=== PATIENT | male | born 1965 | race Caucasian/White ===

== ENCOUNTER 2016-03-30 14:14 | Emergency (ER) | payer BC ==
[2016-03-30 14:30] VITALS: RESP 16; TEMP 98.6
[2016-03-30] MEDS ORDERED: NS 500 ML IV ONE (15:09)
--- NOTE | 2016-03-30 15:13 | EDPHY ---
H & P Stated Complaint: Sore legs, and difficulty breathing Time Seen by Provider: 03/30/16 14:55 HPI/ROS: CHIEF COMPLAINT: Leg pain and shortness of breath HISTORY OF PRESENT ILLNESS: Patient is a 51-year-old man with a history of multiple sclerosis who flew here 2 days ago from [place]. He states that since that time he has had soreness and easy fatigability in his legs as well as mild dyspnea with exertion. He states that his legs feel worse when he is sitting then when he is walking. No history of claudication. He does have a single stent in his heart but no other known vascular disease. He does not smoke. He has not had a cough or fever. He describes his shortness of breath as being very slight. He thinks he may have just over done it 2 days ago with all the traveling. He states that this has happened to him before but usually soreness improves after a day or 2. The pain in his leg is both thighs and calves. He also has some paresthesias in his left thigh but states this is baseline for him with his MS. REVIEW OF SYSTEMS: Constitutional: denies: chills, fever, recent illness, recent injury EENTM: denies: blurred vision, double vision, nose congestion Respiratory: See HPI Cardiac: denies: chest pain, irregular heart rate, lightheadedness, palpitations Gastrointestinal/Abdominal: denies: abdominal pain, diarrhea, nausea, vomiting, blood streaked stools Genitourinary: denies: dysuria, frequency, hematuria, pain Musculoskeletal: See HPI Skin: denies: lesions, rash, jaundice, bruising Neurological: denies: headache, numbness, paresthesia, tingling, dizziness, weakness Hematologic/Lymphatic: denies: blood clots, easy bleeding, easy bruising Immunologic/allergic: denies: HIV/AIDS, transplant EXAM: GENERAL: Well-appearing, well-nourished and in no acute distress. HEAD: Atraumatic, normocephalic. EYES: Pupils equal round and reactive to light, extraocular movements intact, sclera anicteric, conjunctiva are normal. ENT: TMs normal, nares patent, oropharynx clear without exudates. Moist mucous membranes. NECK: Normal range of motion, supple without lymphadenopathy or JVD. LUNGS: Breath sounds clear to auscultation bilaterally and equal. No wheezes rales or rhonchi. HEART: Regular rate and rhythm without murmurs, rubs or gallops. ABDOMEN: Soft, nontender, normoactive bowel sounds. No guarding, no rebound. No masses appreciated. BACK: No CVA tenderness, no spinal tenderness, step-offs or deformities EXTREMITIES: Normal range of motion, no pitting or edema. No clubbing or cyanosis. NEUROLOGICAL: Cranial nerves II through XII grossly intact. Normal speech, normal gait. 5/5 strength, normal movement in all extremities, normal sensation PSYCH: Normal mood, normal affect. SKIN: Warm, dry, normal turgor, no visible rashes or lesions. Source: Patient Exam Limitations: No limitations - Personal History Current Tetanus/Diphtheria Vaccine: Yes - Medical/Surgical History Hx Asthma: No Hx Chronic Respiratory Disease: No Hx Diabetes: No Hx Cardiac Disease: No Hx Renal Disease: No Hx Cirrhosis: No Hx Alcoholism: No Hx HIV/AIDS: No Hx Splenectomy or Spleen Trauma: No Other PMH: MS, Cardiac stent - Family History Significant Family History: No pertinent family hx - Social History Smoking Status: Never smoked Alcohol Use: Sober Drug Use: None Constitutional: Initial Vital Signs Temperature (C) 37 C 03/30/16 14:14 Heart Rate 84 03/30/16 14:14 Respiratory Rate 16 03/30/16 14:14 Blood Pressure 157/96 H 03/30/16 14:14 O2 Sat (%) 97 03/30/16 14:14 O2 Delivery Mode Room Air Allergies/Adverse Reactions: dexamethasone [From Decadron] Allergy (Verified 03/30/16 14:30) dexamethasone sod phosphate [From Decadron] Allergy (Verified 03/30/16 14:30) Home Medications: Medication Instructions Recorded ASPIRIN 03/30/16 Atarax 03/30/16 B-12 03/30/16 CALCIUM 03/30/16 Cefdinir 03/30/16 Flomax 0.4 MG (*) 03/30/16 Nexium 03/30/16 Omnaris 03/30/16 Pearls Probiotic 03/30/16 Rebif 22 Mcg/0.5 ml Syringe 03/30/16 Toprol Xl 100 mg (*) 03/30/16 Tylenol 03/30/16 Medical Decision Making - Diagnostics EKG Interpretation: An EKG obtained and was read and documented in trace view. Please see trace view for full reading and report. Sinus rhythm, no acute ischemic changes or signs of right heart strain. Imaging: X-ray: chest x-ray was obtained. I viewed the images myself on the PACS system. My interpretation of the images is: negative for acute disease . The radiologist interpretation is negative. Study: Ultrasound of the: Bilateral lower extremities Indication: Bilateral leg pain Results: US scan of the lower extremities was obtained. The results of the study are negative for DVT. The study was read by the radiologist, Dr. Alejandrina Abdul. I viewed the images myself on the PACS system. ED Course/Re-evaluation: The patient has a negative physical exam but a concerning story. Also with lab work and ultrasound that may require CT angio of his chest. 6:15 p[address] we discussed the CT results. The patient is relieved. He is eager to go home and declines further workup or testing. He is comfortable and without complaints currently. We discussed indications for returning. Additional verbal discharge instructions given. Differential Diagnosis: Partial list of the Differential diagnosis considered include but were not limited to; PE, DVT, anxiety, fatigue, dehydration, MS exacerbation and although unlikely based on the history and physical exam, I also considered acute coronary disease, upper respiratory disease, influenza. I discussed these differential diagnoses and the plan with the patient as well as the usual and expected course. The patient understands that the diagnosis is provisional and that in medicine we are not always correct and that further workup is often warranted. Usual and customary warnings were given. All of the patient's questions were answered. The patient was instructed to return to the emergency department should the symptoms at all worsen or return, otherwise to followup with the physician as we discussed. - Data Points Laboratory Results: Laboratory Results 03/30/16 16:19 03/30/16 16:19 03/30/16 03/30/16 16:19 14:30 WBC 4.83 10^3/uL (3.80-9.50) RBC 3.76 L 10^6/uL (4.40-6.38) Hgb 12.9 L g/dL (13.7-17.5) Hct 36.2 L % (40.0-51.0) MCV 96.3 fL (81.5-99.8) MCH 34.3 H pg (27.9-34.1) MCHC 35.6 g/dL (32.4-36.7) RDW 12.2 % (11.5-15.2) Plt Count 160 10^3/uL (150-400) MPV 10.0 fL (8.7-11.7) Neut % (Auto) 50.1 % (39.3-74.2) Lymph % (Auto) 35.2 % (15.0-45.0) [place] % (Auto) 13.5 H % (4.5-13.0) Eos % (Auto) 0.4 L % (0.6-7.6) Baso % (Auto) 0.6 % (0.3-1.7) Nucleat RBC Rel Count 0.0 % (0.0-0.2) Absolute Neuts (auto) 2.42 10^3/uL (1.70-6.50) Absolute Lymphs (auto) 1.70 10^3/uL (1.00-3.00) Absolute Monos (auto) 0.65 10^3/uL (0.30-0.80) Absolute Eos (auto) 0.02 L 10^3/uL (0.03-0.40) Absolute Basos (auto) 0.03 10^3/uL (0.02-0.10) Absolute Nucleated RBC 0.00 10^3/uL (0-0.01) Immature Gran % 0.2 % (0.0-1.1) Immature Gran # 0.01 10^3/uL (0.00-0.10) PT 14.2 SEC (12.0-15.0) INR 1.11 (0.83-1.16) APTT 29.5 SEC (23.0-38.0) Sodium 140 mEq/L (134-144) Potassium 4.3 mEq/L (3.5-5.2) Chloride 100 mEq/L (97-110) Carbon Dioxide 27 mEq/l (22-31) Anion Gap 13 mEq/L (8-16) BUN 12 mg/dL (7-23) Creatinine 1.2 mg/dL (0.7-1.3) Estimated GFR > 60 Glucose 92 mg/dL (70-100) Calcium 9.1 mg/dL (8.5-10.4) Troponin I < 0.012 ng/mL (0-0.034) Urine Color PALE YELLOW Urine Appearance CLEAR Urine pH 7.0 (5.0-7.5) Ur Specific [place] 1.002 (1.002-1.030) Urine Protein NEGATIVE (NEGATIVE) Urine Ketones NEGATIVE (NEGATIVE) Urine Blood NEGATIVE (NEGATIVE) Urine Nitrate NEGATIVE (NEGATIVE) Urine Bilirubin NEGATIVE (NEGATIVE) Urine Urobilinogen NEGATIVE EU (0.2-1.0) Ur Leukocyte Esterase NEGATIVE (NEGATIVE) Ur Culture Indicated? NOT INDICATED (NI) Urine Glucose NEGATIVE (NEGATIVE) Medications Given: Discontinued Medications Sodium Chloride (Ns) 500 mls @ 0 mls/hr IV ONCE ONE PRN Reason: As Directed Stop: 03/30/16 15:10 Last Admin: 03/30/16 15:35 Dose: 500 mls Departure - Departure Disposition: Home, Routine, Self-Care Clinical Impression: Multiple sclerosis Fatigue Qualifiers: Fatigue type: due to excessive exertion Encounter type: initial encounter Qualifier Code: (T73.3XXA) Exhaustion due to excessive exertion, initial encounter Condition: Fair Instructions: Fatigue (ED), Dyspnea (ED) Referrals: OUT OF STATE,. [Primary Care Provider] - As per Instructions ED,PHYSICIAN ONDUTY [Medical Doctor] - 1 day, if not improved
--- NOTE | 2016-03-30 15:29 | CPEKG ---
Heart Rate: 71 RR Interval: 845 P-R Interval: 152 QRSD Interval: 106 QT Interval: 372 QTC Interval: 405 P Claude: 66 QRS Claude: 62 T Wave Claude: 45 EKG Severity - NORMAL ECG - EKG Impression: SINUS RHYTHM Electronically Signed By: Davonte Lazo 30-Mar-2016 15:37:51
[2016-03-30 15:32] LABS: COLOR PALE YELLOW; LEUKOCYTE ESTERASE,URINE NEGATIVE (NEGATIVE); NITRITE,URINE NEGATIVE (NEGATIVE)
--- NOTE | 2016-03-30 15:46 | DX ---
Chest, PA and lateral. History: Dyspnea Findings: Heart size is within normal limits. Pulmonary vascularity is normal. The lungs are clear. No evidence of pleural effusion or pneumothorax. Minimal degenerative change is seen in the thoracic spine. Possible calcific tendinitis in both shoulders. Impression: No evidence of acute cardiopulmonary abnormality.
--- NOTE | 2016-03-30 16:30 | US ---
Bilateral lower extremity duplex venous Doppler INDICATION: Bilateral leg pain and swelling. TECHNIQUE: Bilateral lower extremity venous Doppler and grayscale evaluation is performed. FINDINGS: There is no evidence for DVT. The visualized superficial and deep systems demonstrate adore l flow and compressibility. No fluid collection. No mass. IMPRESSION: Normal bilateral lower extremity duplex venous Doppler. Findings were discussed with Dr. Davonte Lazo.
[2016-03-30 16:32] LABS: % IMMATURE GRANULYOCYTES 0.2 % (0.0-1.1); ABSOLUTE IMMATURE GRANULOCYTES 0.01 10^3/uL (0.00-0.10); ADD DIFF? NO; ADD MORPH? NO; ADD SCAN? NO; ATYPICAL LYMPHOCYTE FLAG 40 (0-99); FRAGMENT RBC FLAG 0 (0-99); HEMATOCRIT 36.2 % (40.0-51.0); HEMOGLOBIN 12.9 g/dL (13.7-17.5); LEFT SHIFT FLG 0 (0-99); LIPEMIA HEMOLYSIS FLAG 90 (0-99); MEAN CELL HEMOGLOBIN 34.3 pg (27.9-34.1); MEAN CELL HEMOGLOBIN CONCENTR. 35.6 g/dL (32.4-36.7); MEAN CELL VOLUME 96.3 fL (81.5-99.8); PLATELET CLUMPS FLAG 0 (0-99); PLATELET COUNT 160 10^3/uL (150-400); RED BLOOD CELL COUNT 3.76 10^6/uL (4.40-6.38); RED CELL DISTRIBUTION WIDTH 12.2 % (11.5-15.2)
[2016-03-30 16:37] LABS: INR 1.11 (0.83-1.16); PROTIME(PATIENT) 14.2 SEC (12.0-15.0)
[2016-03-30 16:38] LABS: APTT 29.5 SEC (23.0-38.0)
[2016-03-30 16:49] LABS: ANION GAP 13 mEq/L (8-16); CALCIUM 9.1 mg/dL (8.5-10.4); CARBON DIOXIDE 27 mEq/l (22-31); CHLORIDE 100 mEq/L (97-110); CREATININE 1.2 mg/dL (0.7-1.3); GLOMERULAR FILTRATION RATE > 60; GLUCOSE 92 mg/dL (70-100); POTASSIUM 4.3 mEq/L (3.5-5.2); SODIUM 140 mEq/L (134-144)
[2016-03-30 16:59] LABS: TROPONIN I < 0.012 ng/mL (0-0.034)
[2016-03-30] MEDS ORDERED: IOPAMIDOL (ISOVUE 370) 100 ML BTL IV ONE (17:31)
--- NOTE | 2016-03-30 18:18 | CT ---
CT Chest Angiogram Indication: Chest pain. Shortness of breath. Recent plane flight. Technique: Thinly collimated multidetector helical CT imaging was performed through the chest while 90 mL of [id number]-[id number] were injected intravenously without complication. The images were then transferr ed to an independent workstation where multiplanar reconstructions were performed. Dose reduction judson hniques were utilized. Findings: CT Chest Angiogram: The pulmonary arterial system is well opacified. No intraluminal filling defect s to suggest acute or chronic thrombopulmonary embolic disease. The thoracic aorta is normal caliber . No aneurysm or dissection. CT Chest: The lungs are clear. No pulmonary nodule, mass, or enlarged lymph nodes. Heart size is nor mal. No pericardial or pleural effusion. Mild degenerative change thoracic spine. The imaged portion of the upper abdomen is negative. Impression: 1. No evidence of thrombopulmonary embolic disease. Results called to Dr. Davonte Lazo.
[2016-03-30 18:22] VITALS: BP 132/84; PULSE 74; O2SAT 96
== END 2016-03-30 18:29 | disposition home or self-care (01) ==
DX: G35 Multiple sclerosis (principal); T73.3XXA Exhaustion due to excessive exertion, initial encounter; Z95.5 Presence of coronary angioplasty implant and graft; Z79.82 Long term (current) use of aspirin
CPT/HCPCS: Q9967